=== PATIENT | female | born 1960 | race Caucasian/White ===

== ENCOUNTER 2017-08-09 06:29 | Day surgery (SDC) | payer OTHER ==
[~2017-08-09] VITALS: Ht 162.6 cm; Wt 78.0 kg
[2017-08-09] MEDS ORDERED: DEXAMETHASONE SOD PHOSPHATE 4 MG/ML VIAL IVP ONE (06:30)
[2017-08-09] MEDS ORDERED: NS 50 ML BAG IV ONE (06:30)
[2017-08-09] MEDS ORDERED: METOCLOPRAMIDE HCL 10 MG/2 ML VIAL IVP ONE (06:30)
[2017-08-09] MEDS ORDERED: OXYMETAZOLINE HCL 0.05% NASAL SPRAY NS ONE (06:30)
[2017-08-09] MEDS ORDERED: LIDOCAINE/EPI 1% 1:100000 20 ML VIAL INJ ONE (06:30)
[2017-08-09] MEDS ORDERED: ROCURONIUM BROMIDE 10 MG/ML (ZEMURON) IV ONE (06:30)
[2017-08-09] MEDS ORDERED: SEVOFLURANE 15 MIN GAS INH ONE (06:30)
[2017-08-09] MEDS ORDERED: fentaNYL CITRATE/PF 100 MCG/2 ML AMP IVP ONE (06:30)
[2017-08-09] MEDS ORDERED: BACITRACIN ZINC 15 GM TOPICAL OINTMENT TP ONE (06:30)
[2017-08-09] MEDS ORDERED: LR 1,000 ML IV.SOLN IV ONE (06:30)
[2017-08-09] MEDS ORDERED: NS IRRIG SOLN 1000 ML IR ONE (06:30)
[2017-08-09] MEDS ORDERED: PROPOFOL 200MG/ 20ML VIAL (DIPRIVAN) IV ONE (06:30)
[2017-08-09] MEDS ORDERED: MIDAZOLAM HCL 5 MG/ML VIAL (VERSED) IV ONE (06:30)
[2017-08-09] MEDS ORDERED: LR 1,000 ML IV ONE (09:47)
[2017-08-09] MEDS ORDERED: fentaNYL CITRATE/PF 100 MCG/2 ML AMP IVP PRN (10:00)
[2017-08-09] MEDS ORDERED: DIPHENHYDRAMINE INJ 50 MG/ML VIAL IVP PRN (10:00)
[2017-08-09] MEDS ORDERED: NALOXONE HCL 0.4 MG/ML AMP (NARCAN) IVP PRN (10:00)
[2017-08-09] MEDS ORDERED: ONDANSETRON HCL 4 MG/2 ML VIAL IVP PRN ×2 (10:00)
[2017-08-09] MEDS ORDERED: ePHEDrine sulfate 50 MG/ML VIAL IVP PRN (10:00)
[2017-08-09] MEDS ORDERED: NALBUPHINE HCL 10 MG/ML AMP IVP PRN (10:00)
[2017-08-09 14:47] VITALS: BP_SYST 137
== END 2017-08-09 14:40 | disposition home or self-care (01) ==
LOC: SDS 06:29 → SMU 06:30 → SDS 14:40
PROVIDERS: ATTEND Otolaryngology
DX: J34.2 Deviated nasal septum (principal); J32.9 Chronic sinusitis, unspecified; J34.89 Other specified disorders of nose and nasal sinuses
CPT/HCPCS: 30140; 30520; 31240; 31297; 88304; 88311; 93005; J1100; J2250; J2704; J2765; J3010; J7120; 88305; A4649; C1726